=== PATIENT | female | born 1950 | race Caucasian/White ===

== ENCOUNTER 2017-06-16 18:17 | Inpatient (IN) | payer MEDICARE, MEDICAID ==
[~2017-06-16] VITALS: Ht 167.6 cm; Wt 39.0 kg
[2017-06-16 18:16] VITALS: BP 104/64
--- NOTE | 2017-06-16 18:23 | Emergency Room Report ---
History of Present Illness General Chief Complaint: Abnormal Labs Source: Patient, Medical Record Present Illness HPI 66-year-old female history of schizophrenia, anemia, hypothyroidism brought from half-way for high WBC. Per half-way notes patient has remained afebrile and not complaining of any pain or discomfort. Patient currently denying any complaints. Denies any fever chills cough shortness of breath abdominal pain nausea vomiting or diarrhea. Patient states that she has chronic rash secondary to heat which she has currently on her abdomen and legs. Patient states rash is itchy but not painful and usually goes away with Benadryl at night Allergies: Coded Allergies: HALOPERIDOL (Verified Allergy, Intermediate, 06/16/17) Patient History Past Medical History: see triage record Past Surgical History: none Pertinent Family History: none Reviewed Nursing Documentation: PMH: Agreed, PSxH: Agreed Review of Systems All Other Systems: negative except mentioned in HPI Physical Exam Vital Signs Date Time Temp Pulse Resp B/P (MAP) Pulse Ox O2 Delivery O2 Flow Rate FiO2 06/16/17 18:05 98.1 80 16 105/69 97 Room Air Sp02 EP Interpretation: reviewed, normal General Appearance: normal inspection, well appearing, no apparent distress, alert, GCS 15, non-toxic Head: normocephalic, atraumatic Eyes: bilateral eye normal inspection, bilateral eye PERRL, bilateral eye EOMI ENT: normal ENT inspection, normal pharynx, normal voice, moist mucus membranes Neck: normal inspection, full range of motion, supple Respiratory: normal inspection, lungs clear, normal breath sounds, no respiratory distress, no retraction, no wheezing, speaking full sentences, chest symmetrical Cardiovascular #1: normal inspection, regular rate, rhythm, no edema, normal capillary refill Gastrointestinal: normal inspection, non tender, soft, non-distended, no guarding Musculoskeletal: normal inspection, back normal, normal range of motion, non- tender Neurologic: normal inspection, alert, oriented x3, responsive, motor strength/ tone normal, sensory intact, normal gait, speech normal Psychiatric: normal inspection, judgement/insight normal, memory normal Skin: warm/dry, well hydrated, normal turgor, other - mild chronic rash noted to chest/abdomen, nontender Medical Decision Making Diagnostic Impression: Primary Impression: UTI (urinary tract infection) ER Course 66 yo F with p/w high WBC from [place] DDX: UTI, PNA, bacteremia Plan: Obtain labs including cbc, bmp, blood culture, lactate, ua, ucx CXR EKG ER course: Patients BP has remained stable with MAP > 65 Given abx - vancomycin and zosyn Disposition: Patient will admitted to med surg Patient requires continuation of IV antibiotics. D/W Hospitalist Please note that this Emergency Department Report was dictated using [employer] maintenance technology software, occasionally this can lead to erroneous entry secondary to interpretation by the dictation equipment. Laboratory Tests Test 06/16/17 18:30 06/16/17 20:20 White Blood Count 17.1 K/UL (4.8-10.8) H Red Blood Count 3.64 M/UL (4.20-5.40) L Hemoglobin 12.3 G/DL (12.0-16.0) Hematocrit 36.2 % (37.0-47.0) L Mean Corpuscular Volume 100 FL (80-99) H Mean Corpuscular Hemoglobin 33.9 PG (27.0-31.0) H Mean Corpuscular Hemoglobin Concent 34.0 G/DL (32.0-36.0) Red Cell Distribution Width 12.0 % (11.6-14.8) Platelet Count 385 K/UL (150-450) Mean Platelet Volume 6.2 FL (6.5-10.1) L Neutrophils (%) (Auto) 68.0 % (45.0-75.0) Lymphocytes (%) (Auto) 20.9 % (20.0-45.0) Monocytes (%) (Auto) 7.2 % (1.0-10.0) Eosinophils (%) (Auto) 2.5 % (0.0-3.0) Basophils (%) (Auto) 1.5 % (0.0-2.0) Urine Color Pale yellow Urine Appearance Clear Urine pH 7 (4.5-8.0) Urine Specific [place] 1.005 (1.005-1.035) Urine Protein Negative (NEGATIVE) Urine Glucose (UA) Negative (NEGATIVE) Urine Ketones Negative (NEGATIVE) Urine Occult Blood Negative (NEGATIVE) Urine Nitrite Negative (NEGATIVE) Urine Bilirubin Negative (NEGATIVE) Urine Urobilinogen Normal MG/DL (0.0-1.0) Urine Leukocyte Esterase 2+ (NEGATIVE) H Urine RBC 0-2 /HPF (0 - 2) Urine WBC 5-10 /HPF (0 - 2) H Urine Squamous Epithelial Cells None /LPF (NONE/OCC) Urine Bacteria Moderate /HPF (NONE) H Sodium Level 140 mEQ/L (135-145) Potassium Level 4.1 mEQ/L (3.4-4.9) Chloride Level 98 mEQ/L (98-107) Carbon Dioxide Level 30 mEQ/L (20-30) Anion Gap 12 (5-15) Blood Urea Nitrogen 11 mg/dL (7-23) Creatinine 0.7 mg/dL (0.5-0.9) Estimate Glomerular Filtration Rate > 60 mL/min (>60) Glucose Level 98 mg/dL (74-106) Lactic Acid Level 2.60 mmol/L (0.66-2.22) H 0.70 mmol/L (0.66-2.22) Calcium Level 9.3 mg/dL (8.6-10.2) Total Bilirubin < 0.2 mg/dL (0.0-1.2) Aspartate Amino Transferase (AST) 20 U/L (5-40) Alanine Aminotransferase (ALT) 16 U/L (3-33) Alkaline Phosphatase 91 U/L (35-104) Total Creatine Kinase 71 U/L (26-140) Creatine Kinase MB 1.9 ng/mL (< 3.8) Creatine Kinase MB Relative Index 2.6 Troponin I < 0.30 ng/mL (<=0.30) Total Protein 7.2 g/dL (6.6-8.7) Albumin 4.1 g/dL (3.5-5.2) Globulin 3.1 g/dL Albumin/Globulin Ratio 1.3 (1.0-2.7) EKG Diagnostic Results Rate: normal Rhythm: NSR ST Segments: no acute changes ASA given to the pt in ED: No Rhythm Strip Diag. Results EP Interpretation: yes Rate: 81 Rhythm: NSR, no PVC's, no ectopy Chest X-Ray Diagnostic Results Chest X-Ray Diagnostic Results : # of Views/Limited/Complete: 1 View Indication: Other EP Interpretation: Yes Interpretation: no consolidation, no effusion, no pneumothorax, other - hyperinflated lung Impression: Other - hyperinflated lungs Interpreting ER Provider: Electronically signed by Ana Maria Abdul MD Last Vital Signs Date Time Temp Pulse Resp B/P (MAP) Pulse Ox O2 Delivery O2 Flow Rate FiO2 8/25/17 18:16 97.4 80 14 104/64 97 Room Air Disposition: ADMITTED INPATIENT Condition: Serious Ana Maria Abdul M.D. Jun 16, 2017 18:23
[2017-06-16 19:15] VITALS: BP 125/67
[2017-06-16 19:15] LABS: BASOPHILS % (AUTO) 1.5 % (0.0-2.0); EOSINOPHILS % (AUTO) 2.5 % (0.0-3.0); LYMPHOCYTES % (AUTO) 20.9 % (20.0-45.0); MEAN CORPUSCULAR HEMOGLOBIN 33.9 PG (27.0-31.0); MEAN CORPUSCULAR VOLUME 100 FL (80-99); MEAN PLATELET VOLUME 6.2 FL (6.5-10.1); MONOCYTES % (AUTO) 7.2 % (1.0-10.0); PLATELET COUNT 385 K/UL (150-450); RED BLOOD COUNT 3.64 M/UL (4.20-5.40); WHITE BLOOD COUNT 17.1 K/UL (4.8-10.8)
[2017-06-16] MEDS ORDERED: ATIVAN1 MG ORAL (19:39)
[2017-06-16] MEDS ORDERED: SYNTHROID50 MCG ORAL (19:39)
[2017-06-16] MEDS ORDERED: INVEGA SUS156 MG/11 IM (19:39)
[2017-06-16] MEDS ORDERED: CITALOPRAM10 MG/5 M1 ORAL (19:39)
[2017-06-16] MEDS ORDERED: COLACE100 MG ORAL (19:39)
[2017-06-16] MEDS ORDERED: CLONAZEPAM0.5 M1 PO (19:39)
[2017-06-16] MEDS ORDERED: MOM30 ML ORAL (19:39)
[2017-06-16] MEDS ORDERED: TYLENOL650 MG/20. ORAL (19:39)
[2017-06-16 19:43] LABS: TROPONIN I < 0.30 ng/mL (<=0.30)
[2017-06-16 19:58] LABS: REFLEX LACTIC ACID YES OR NO YES
[2017-06-16 20:03] LABS: APPEARANCE,URINE CLEAR; KETONES,URINE NEGATIVE (NEGATIVE); LEUKOCYTE ESTERASE ,URINE 2+ (NEGATIVE); NITRITE,URINE NEGATIVE (NEGATIVE); PH,URINE 7 (4.5-8.0); PROTEIN,URINE NEGATIVE (NEGATIVE); UROBILINOGEN,URINE NORMAL MG/DL (0.0-1.0)
[2017-06-16 20:08] LABS: RBC,URINE 0-2 /HPF (0 - 2)
[2017-06-16 20:09] LABS: BACTERIA,URINE MODERATE /HPF
[2017-06-16 20:15] VITALS: BP 129/70
[2017-06-16] MEDS ORDERED: Vancomycin 1250mg/D5W 250ml 250 ML IVPB SCH (20:15)
[2017-06-16] MEDS ORDERED: cefTRIAXone 1 GM in NS 55 ML IVPB ONE (20:15)
[2017-06-16 20:17] LABS: ALANINE AMINOTRANSFERASE 16 U/L (3-33); ALBUMIN/GLOBULIN RATIO 1.3 (1.0-2.7); ANION GAP 12 (5-15); ASPARTATE AMINO TRANSFERASE 20 U/L (5-40); CALCIUM 9.3 mg/dL (8.6-10.2); CARBON DIOXIDE 30 mEQ/L (20-30); CHLORIDE 98 mEQ/L (98-107); CREATININE 0.7 mg/dL (0.5-0.9); GLOMERULAR FILTRATION RATE > 60 mL/min (>60); HEMOLYSIS 2; POTASSIUM 4.1 mEQ/L (3.4-4.9); SODIUM 140 mEQ/L (135-145); TOTAL PROTEIN 7.2 g/dL (6.6-8.7)
[2017-06-16 20:28] LABS: CKMB 1.9 ng/mL (< 3.8)
[2017-06-16 21:15] VITALS: BP 144/78
[2017-06-16] MEDS ORDERED: DiphenhydrAMINE 50mg/ml Inj IVP ONE (21:15)
[2017-06-16] MEDS ORDERED: Nitroglycerin Subl 0.4mg tab (Bottle Of 25) SL PRN (22:00)
[2017-06-16] MEDS ORDERED: Miralax 17gm pkt ORAL PRN (22:00)
[2017-06-16] MEDS ORDERED: Morphine Sulfate 2mg/ml Inj IVP PRN (22:00)
[2017-06-16] MEDS ORDERED: DuoNeb 0.5-3(2.5)mg/3ml neb HHN PRN (22:00)
[2017-06-17] VITALS: BP 119/60
[2017-06-17] MEDS ORDERED: Vancomycin 1 GM in D5W 275 ML IV SCH (00:30)
[2017-06-17 04:00] VITALS: BP 121/76
[2017-06-17] MEDS: Levothyroxine 25mcg tab ORAL SCH (06:26)
[2017-06-17 07:09] LABS: BASOPHILS % (AUTO) 1.1 % (0.0-2.0); EOSINOPHILS % (AUTO) 2.5 % (0.0-3.0); LYMPHOCYTES % (AUTO) 23.1 % (20.0-45.0); MEAN CORPUSCULAR HEMOGLOBIN 33.9 PG (27.0-31.0); MEAN CORPUSCULAR HGB CONC 33.7 G/DL (32.0-36.0); MEAN CORPUSCULAR VOLUME 101 FL (80-99); MEAN PLATELET VOLUME 6.4 FL (6.5-10.1); MONOCYTES % (AUTO) 6.4 % (1.0-10.0); NEUTROPHILS % (AUTO) 66.9 % (45.0-75.0); PLATELET COUNT 378 K/UL (150-450); RED BLOOD COUNT 3.68 M/UL (4.20-5.40); RED CELL DISTRIBUTION WIDTH 11.5 % (11.6-14.8); WHITE BLOOD COUNT 16.3 K/UL (4.8-10.8)
[2017-06-17 07:20] LABS: ALANINE AMINOTRANSFERASE 15 U/L (3-33); ALBUMIN/GLOBULIN RATIO 1.1 (1.0-2.7); ANION GAP 10 (5-15); ASPARTATE AMINO TRANSFERASE 21 U/L (5-40); CALCIUM 8.7 mg/dL (8.6-10.2); CARBON DIOXIDE 27 mEQ/L (20-30); CHLORIDE 104 mEQ/L (98-107); CREATININE 0.5 mg/dL (0.5-0.9); GLOMERULAR FILTRATION RATE > 60 mL/min (>60); HEMOLYSIS 3; POTASSIUM 4.5 mEQ/L (3.4-4.9); SODIUM 141 mEQ/L (135-145); TOTAL PROTEIN 6.3 g/dL (6.6-8.7)
[2017-06-17 08:00] VITALS: BP 107/74
--- NOTE | 2017-06-17 08:51 | Diagnostic Imaging Report ---
Indication: Chest pain Comparison: None A single view chest radiograph was obtained. Findings: Lungs are clear. Heart size is normal. Aorta is ectatic. Bones are osteopenic. Impression: No acute disease
[2017-06-17] MEDS: Heparin 5000 units/ml inj SUBQ SCH ×2 (09:00→21:00)
[2017-06-17] MEDS: LORazepam 1mg tab ORAL SCH ×2 (09:21→17:25)
[2017-06-17] MEDS: Cefepime HCl 2 GM in D5W 110 ML IV SCH (09:21)
[2017-06-17] MEDS: Citalopram Hydrobromide 10 MG TAB ORAL SCH (11:10)
--- NOTE | 2017-06-17 11:18 | Diagnostic Imaging Report ---
Indication: Dyspnea Comparison: 06/16/17 A single view chest radiograph was obtained. Findings: No definite infiltrate or pulmonary vascular congestion identified. The heart is normal in size. The aorta is mildly enlarged consistent with atherosclerotic vascular disease. The bones are osteopenic. Impression: No acute disease
[2017-06-17 12:00] VITALS: BP 109/68
--- NOTE | 2017-06-17 14:27 | Infectious Diseases Prog Note ---
Assessment/Plan Problems: (1) Sepsis Assessment & Plan: with leukocytosis, continue vancomycin and cefepime, pending blood culture results (2) UTI (urinary tract infection) Assessment & Plan: continue cefepime, pending culture results (3) Tinea corporis Assessment & Plan: will start local Lotrimin, keep well ventilated and dry Subjective Allergies: Coded Allergies: HALOPERIDOL (Verified Allergy, Intermediate, 06/16/17) Objective Vital Signs Last 24 Hour Vital Signs Date Time Temp Pulse Resp B/P (MAP) Pulse Ox O2 Delivery O2 Flow Rate FiO2 06/17/17 12:00 97.2 97 20 109/68 94 Room Air 06/17/17 08:00 96.4 77 18 107/74 94 Room Air 06/17/17 04:00 97.6 81 18 121/76 98 Room Air 06/17/17 00:00 97.3 69 18 119/60 93 Room Air 06/16/17 21:56 97.4 78 18 144/78 98 Room Air 06/16/17 21:15 78 18 144/78 98 Room Air 06/16/17 20:15 67 20 129/70 98 Room Air 06/16/17 19:15 70 21 125/67 98 Room Air 06/16/17 18:16 97.4 80 14 104/64 97 Room Air 06/16/17 18:05 98.1 80 16 105/69 97 Room Air Height (Feet): 5 Height (Inches): 6.00 Weight (Pounds): 86 Laboratory Tests Test 06/16/17 18:30 06/16/17 20:20 06/17/17 05:15 White Blood Count 17.1 K/UL (4.8-10.8) H 16.3 K/UL (4.8-10.8) H Red Blood Count 3.64 M/UL (4.20-5.40) L 3.68 M/UL (4.20-5.40) L Hemoglobin 12.3 G/DL (12.0-16.0) 12.5 G/DL (12.0-16.0) Hematocrit 36.2 % (37.0-47.0) L 37.0 % (37.0-47.0) Mean Corpuscular Volume 100 FL (80-99) H 101 FL (80-99) H Mean Corpuscular Hemoglobin 33.9 PG (27.0-31.0) H 33.9 PG (27.0-31.0) H Mean Corpuscular Hemoglobin Concent 34.0 G/DL (32.0-36.0) 33.7 G/DL (32.0-36.0) Red Cell Distribution Width 12.0 % (11.6-14.8) 11.5 % (11.6-14.8) L Platelet Count 385 K/UL (150-450) 378 K/UL (150-450) Mean Platelet Volume 6.2 FL (6.5-10.1) L 6.4 FL (6.5-10.1) L Neutrophils (%) (Auto) 68.0 % (45.0-75.0) 66.9 % (45.0-75.0) Lymphocytes (%) (Auto) 20.9 % (20.0-45.0) 23.1 % (20.0-45.0) Monocytes (%) (Auto) 7.2 % (1.0-10.0) 6.4 % (1.0-10.0) Eosinophils (%) (Auto) 2.5 % (0.0-3.0) 2.5 % (0.0-3.0) Basophils (%) (Auto) 1.5 % (0.0-2.0) 1.1 % (0.0-2.0) Urine Color Pale yellow Urine Appearance Clear Urine pH 7 (4.5-8.0) Urine Specific [place] 1.005 (1.005-1.035) Urine Protein Negative (NEGATIVE) Urine Glucose (UA) Negative (NEGATIVE) Urine Ketones Negative (NEGATIVE) Urine Occult Blood Negative (NEGATIVE) Urine Nitrite Negative (NEGATIVE) Urine Bilirubin Negative (NEGATIVE) Urine Urobilinogen Normal MG/DL (0.0-1.0) Urine Leukocyte Esterase 2+ (NEGATIVE) H Urine RBC 0-2 /HPF (0 - 2) Urine WBC 5-10 /HPF (0 - 2) H Urine Squamous Epithelial Cells None /LPF (NONE/OCC) Urine Bacteria Moderate /HPF (NONE) H Sodium Level 140 mEQ/L (135-145) 141 mEQ/L (135-145) Potassium Level 4.1 mEQ/L (3.4-4.9) 4.5 mEQ/L (3.4-4.9) Chloride Level 98 mEQ/L (98-107) 104 mEQ/L (98-107) Carbon Dioxide Level 30 mEQ/L (20-30) 27 mEQ/L (20-30) Anion Gap 12 (5-15) 10 (5-15) Blood Urea Nitrogen 11 mg/dL (7-23) 11 mg/dL (7-23) Creatinine 0.7 mg/dL (0.5-0.9) 0.5 mg/dL (0.5-0.9) Estimat Glomerular Filtration Rate > 60 mL/min (>60) > 60 mL/min (>60) Glucose Level 98 mg/dL (74-106) 97 mg/dL (74-106) Lactic Acid Level 2.60 mmol/L (0.66-2.22) H 0.70 mmol/L (0.66-2.22) Calcium Level 9.3 mg/dL (8.6-10.2) 8.7 mg/dL (8.6-10.2) Total Bilirubin < 0.2 mg/dL (0.0-1.2) < 0.2 mg/dL (0.0-1.2) Aspartate Amino Transf (AST/SGOT) 20 U/L (5-40) 21 U/L (5-40) Alanine Aminotransferase (ALT/SGPT) 16 U/L (3-33) 15 U/L (3-33) Alkaline Phosphatase 91 U/L (35-104) 92 U/L (35-104) Total Creatine Kinase 71 U/L (26-140) Creatine Kinase MB 1.9 ng/mL (< 3.8) Creatine Kinase MB Relative Index 2.6 Troponin I < 0.30 ng/mL (<=0.30) Total Protein 7.2 g/dL (6.6-8.7) 6.3 g/dL (6.6-8.7) L Albumin 4.1 g/dL (3.5-5.2) 3.3 g/dL (3.5-5.2) L Globulin 3.1 g/dL 3.0 g/dL Albumin/Globulin Ratio 1.3 (1.0-2.7) 1.1 (1.0-2.7) Current Medications Medications (Trade) Dose Ordered Sig/David Route PRN Reason Start Time Stop Time Status Last Admin Dose Admin Acetaminophen (Tylenol) 650 mg Q4H PRN ORAL fever 06/16/17 22:00 07/16/17 21:59 Albuterol/ Ipratropium (DuoNeb 0.5-3(2.5)mg/3ml) 3 ml Q4H PRN HHN Shortness of Breath 06/16/17 22:00 06/21/17 21:59 Cefepime HCl 2 gm/ Dextrose 110 ml @ 220 mls/hr Q24H IV 06/17/17 08:30 06/24/17 08:29 06/17/17 09:21 Citalopram Hydrobromide (celeXA) 10 mg DAILY ORAL 06/17/17 11:00 07/17/17 10:59 06/17/17 11:10 Clotrimazole (Lotrimin) 1 applic THREE TIMES A DAY TOPIC 06/17/17 18:00 07/17/17 17:59 Diphenhydramine HCl (Benadryl) 25 mg Q8HR PRN ORAL Itching 06/17/17 08:00 07/17/17 07:59 Heparin Sodium (Porcine) (Heparin 5000 units/ml) 5,000 units EVERY 12 HOURS SUBQ 06/17/17 09:00 07/17/17 08:59 Levothyroxine Sodium (Synthroid) 25 mcg DAILY@0630 ORAL 06/17/17 06:30 07/17/17 06:29 06/17/17 06:26 Lorazepam (Ativan) 1 mg BID ORAL 06/17/17 09:00 06/24/17 08:59 06/17/17 09:21 Morphine Sulfate (Morphine Sulfate) 2 mg Q4H PRN IVP Moderate Pain (Pain Scale 4-6) 06/16/17 22:00 06/23/17 21:59 Nicotine (Nicoderm) 1 patch Q24H TDERMAL 06/17/17 10:30 07/17/17 10:29 06/17/17 11:10 Nitroglycerin (Ntg) 0.4 mg Q5MIN x 3 DOSES PRN SL Prn Chest Pain 06/16/17 22:00 07/16/17 21:59 Ondansetron HCl (Zofran) 4 mg Q6H PRN IVP Nausea & Vomiting 06/16/17 22:00 07/16/17 21:59 Polyethylene Glycol (Miralax) 17 gm DAILYPRN PRN ORAL Constipation 06/16/17 22:00 07/16/17 21:59 Temazepam (Restoril) 15 mg HSPRN PRN ORAL Insomnia 06/16/17 22:00 06/23/17 21:59 Vancomycin/Sodium Chloride 250 ml @ 166.667 mls/hr Q24H IVPB 06/17/17 21:00 06/22/17 20:59 Reyna Alex M.D. Jun 17, 2017 14:26
[2017-06-17] MEDS: clonazePAM 0.5mg tab ORAL PRN (15:04)
[2017-06-17] MEDS ORDERED: Tubing IV Secondary IV ONE (15:50)
[2017-06-17] MEDS ORDERED: NS 275ml ONE (15:50)
[2017-06-17 16:00] VITALS: BP 113/77
--- NOTE | 2017-06-17 16:34 | Consultation ---
History of Present Illness General Date patient seen: Jun 17, 2017 Time patient seen: 14:00 Chief Complaint: Abnormal Labs Referring physician: dr Sanchez Reason for Consultation: inpatient management Present Illness HPI 66-year-old female with PMH of history of schizophrenia, anemia, hypothyroidism came form the SNF for evaluation fo leukocytosis. At SNF patient remained afebrile and did not complained of any pain or discomfort. She denies cough, congestion No diarrhea, no abdominal pain No cehst pain, no SOB, no dizziness patient reported chronic rash secondary to heat, on torso and legs described rash as itchy, but no pain Benadryl helps Workup in ED revealed no fever WBC-17.1 lactic acid- 2.6 CXR with evidence of hyperinflated lungs sanya is a current smoker -1 pack/day ECG with NSR no acute ischemic changes patient was admitted for further management Allergies: Coded Allergies: HALOPERIDOL (Verified Allergy, Intermediate, 06/16/17) Medication History Scheduled Citalopram Hydrobromide (Citalopram Hbr), 10 MG ORAL DAILY, (Reported) Docusate Sodium* (Colace*), 100 MG ORAL TWICE A DAY, (Reported) Levothyroxine Sodium (Synthroid), 25 MCG ORAL DAILY, (Reported) Lorazepam* (Ativan*), 1 MG ORAL BID, (Reported) Paliperidone Palmitate (Invega Sustenna), 156 MG IM [id number], (Reported) Scheduled PRN Acetaminophen (Acetaminophen), 650 MG ORAL Q4HR PRN for fever & pain, (Reported) Clonazepam (Clonazepam), 0.5 MG PO Q4HR PRN for For Anxiety, (Reported) Magnesium Hydroxide (Milk of Magnesia), 30 ML ORAL qhs PRN for Constipation, ( Reported) Patient History Healthcare decision maker Resuscitation status Advanced Directive on File Past Medical/Surgical History Past Medical/Surgical History: (1) Anxiety (2) Depression (3) Anemia (4) Hypothyroidism Review of Systems Constitutional: Reports: weakness Eye: Reports: no symptoms ENT: Reports: no symptoms Respiratory: Reports: no symptoms Cardiovascular: Reports: no symptoms Gastrointestinal: Reports: no symptoms Genitourinary: Reports: no symptoms Musculoskeletal: Reports: no symptoms Skin: Reports: no symptoms Psychiatric: Reports: other - depression, anxiety Neurological: Reports: no symptoms Endocrine: Reports: other - hypothyroidism Hematologic/Lymphatic: Reports: anemia Physical Exam General Appearance: no apparent distress, alert, cachetic - female Lines, tubes and drains: peripheral HEENT: normocephalic, atraumatic, anicteric, mucous membranes moist Neck: non-tender, supple Respiratory/Chest: lungs clear - with moderate air exchange Cardiovascular/Chest: normal peripheral pulses, normal rate, regular rhythm Abdomen: normal bowel sounds, non tender, soft Extremities: normal range of motion, non-tender, no calf tenderness, normal capillary refill Skin Exam: normal pigmentation, warm/dry Neurologic: no motor/sensory deficits, alert, responsive Musculoskeletal: normal muscle bulk Last 24 Hour Vital Signs Date Time Temp Pulse Resp B/P (MAP) Pulse Ox O2 Delivery O2 Flow Rate FiO2 06/17/17 12:00 97.2 97 20 109/68 94 Room Air 06/17/17 08:00 96.4 77 18 107/74 94 Room Air 06/17/17 04:00 97.6 81 18 121/76 98 Room Air 06/17/17 00:00 97.3 69 18 119/60 93 Room Air 06/16/17 21:56 97.4 78 18 144/78 98 Room Air 06/16/17 21:15 78 18 144/78 98 Room Air 06/16/17 20:15 67 20 129/70 98 Room Air 06/16/17 19:15 70 21 125/67 98 Room Air 06/16/17 18:16 97.4 80 14 104/64 97 Room Air 06/16/17 18:05 98.1 80 16 105/69 97 Room Air Intake and Output 06/17/17 06/18/17 19:00 07:00 Intake Total 250 ml Balance 250 ml Intake Oral 250 ml # Voids 1 # Bowel Movements 1 Laboratory Tests Test 06/16/17 18:30 06/16/17 20:20 06/17/17 05:15 White Blood Count 17.1 K/UL (4.8-10.8) H 16.3 K/UL (4.8-10.8) H Red Blood Count 3.64 M/UL (4.20-5.40) L 3.68 M/UL (4.20-5.40) L Hemoglobin 12.3 G/DL (12.0-16.0) 12.5 G/DL (12.0-16.0) Hematocrit 36.2 % (37.0-47.0) L 37.0 % (37.0-47.0) Mean Corpuscular Volume 100 FL (80-99) H 101 FL (80-99) H Mean Corpuscular Hemoglobin 33.9 PG (27.0-31.0) H 33.9 PG (27.0-31.0) H Mean Corpuscular Hemoglobin Concent 34.0 G/DL (32.0-36.0) 33.7 G/DL (32.0-36.0) Red Cell Distribution Width 12.0 % (11.6-14.8) 11.5 % (11.6-14.8) L Platelet Count 385 K/UL (150-450) 378 K/UL (150-450) Mean Platelet Volume 6.2 FL (6.5-10.1) L 6.4 FL (6.5-10.1) L Neutrophils (%) (Auto) 68.0 % (45.0-75.0) 66.9 % (45.0-75.0) Lymphocytes (%) (Auto) 20.9 % (20.0-45.0) 23.1 % (20.0-45.0) Monocytes (%) (Auto) 7.2 % (1.0-10.0) 6.4 % (1.0-10.0) Eosinophils (%) (Auto) 2.5 % (0.0-3.0) 2.5 % (0.0-3.0) Basophils (%) (Auto) 1.5 % (0.0-2.0) 1.1 % (0.0-2.0) Urine Color Pale yellow Urine Appearance Clear Urine pH 7 (4.5-8.0) Urine Specific [place] 1.005 (1.005-1.035) Urine Protein Negative (NEGATIVE) Urine Glucose (UA) Negative (NEGATIVE) Urine Ketones Negative (NEGATIVE) Urine Occult Blood Negative (NEGATIVE) Urine Nitrite Negative (NEGATIVE) Urine Bilirubin Negative (NEGATIVE) Urine Urobilinogen Normal MG/DL (0.0-1.0) Urine Leukocyte Esterase 2+ (NEGATIVE) H Urine RBC 0-2 /HPF (0 - 2) Urine WBC 5-10 /HPF (0 - 2) H Urine Squamous Epithelial Cells None /LPF (NONE/OCC) Urine Bacteria Moderate /HPF (NONE) H Sodium Level 140 mEQ/L (135-145) 141 mEQ/L (135-145) Potassium Level 4.1 mEQ/L (3.4-4.9) 4.5 mEQ/L (3.4-4.9) Chloride Level 98 mEQ/L (98-107) 104 mEQ/L (98-107) Carbon Dioxide Level 30 mEQ/L (20-30) 27 mEQ/L (20-30) Anion Gap 12 (5-15) 10 (5-15) Blood Urea Nitrogen 11 mg/dL (7-23) 11 mg/dL (7-23) Creatinine 0.7 mg/dL (0.5-0.9) 0.5 mg/dL (0.5-0.9) Estimat Glomerular Filtration Rate > 60 mL/min (>60) > 60 mL/min (>60) Glucose Level 98 mg/dL (74-106) 97 mg/dL (74-106) Lactic Acid Level 2.60 mmol/L (0.66-2.22) H 0.70 mmol/L (0.66-2.22) Calcium Level 9.3 mg/dL (8.6-10.2) 8.7 mg/dL (8.6-10.2) Total Bilirubin < 0.2 mg/dL (0.0-1.2) < 0.2 mg/dL (0.0-1.2) Aspartate Amino Transf (AST/SGOT) 20 U/L (5-40) 21 U/L (5-40) Alanine Aminotransferase (ALT/SGPT) 16 U/L (3-33) 15 U/L (3-33) Alkaline Phosphatase 91 U/L (35-104) 92 U/L (35-104) Total Creatine Kinase 71 U/L (26-140) Creatine Kinase MB 1.9 ng/mL (< 3.8) Creatine Kinase MB Relative Index 2.6 Troponin I < 0.30 ng/mL (<=0.30) Total Protein 7.2 g/dL (6.6-8.7) 6.3 g/dL (6.6-8.7) L Albumin 4.1 g/dL (3.5-5.2) 3.3 g/dL (3.5-5.2) L Globulin 3.1 g/dL 3.0 g/dL Albumin/Globulin Ratio 1.3 (1.0-2.7) 1.1 (1.0-2.7) Height (Feet): 5 Height (Inches): 6.00 Weight (Pounds): 86 Medications Current Medications Medications (Trade) Dose Ordered Sig/David Route PRN Reason Start Time Stop Time Status Last Admin Dose Admin Acetaminophen (Tylenol) 650 mg Q4H PRN ORAL fever 06/16/17 22:00 07/16/17 21:59 Albuterol/ Ipratropium (DuoNeb 0.5-3(2.5)mg/3ml) 3 ml Q4H PRN HHN Shortness of Breath 06/16/17 22:00 06/21/17 21:59 Cefepime HCl 2 gm/ Dextrose 110 ml @ 220 mls/hr Q24H IV 06/17/17 08:30 06/24/17 08:29 06/17/17 09:21 Citalopram Hydrobromide (celeXA) 10 mg DAILY ORAL 06/17/17 11:00 07/17/17 10:59 06/17/17 11:10 Clonazepam (KlonoPIN) 0.5 mg Q6H PRN ORAL For Anxiety 06/17/17 15:00 06/24/17 14:59 06/17/17 15:04 Clotrimazole (Lotrimin) 1 applic THREE TIMES A DAY TOPIC 06/17/17 18:00 07/17/17 17:59 Diphenhydramine HCl (Benadryl) 25 mg Q8HR PRN ORAL Itching 06/17/17 08:00 07/17/17 07:59 Heparin Sodium (Porcine) (Heparin 5000 units/ml) 5,000 units EVERY 12 HOURS SUBQ 06/17/17 09:00 07/17/17 08:59 Levothyroxine Sodium (Synthroid) 25 mcg DAILY@0630 ORAL 06/17/17 06:30 07/17/17 06:29 06/17/17 06:26 Lorazepam (Ativan) 1 mg BID ORAL 06/17/17 09:00 06/24/17 08:59 06/17/17 09:21 Morphine Sulfate (Morphine Sulfate) 2 mg Q4H PRN IVP Moderate Pain (Pain Scale 4-6) 06/16/17 22:00 06/23/17 21:59 Nicotine (Nicoderm) 1 patch Q24H TDERMAL 06/17/17 10:30 07/17/17 10:29 06/17/17 11:10 Nitroglycerin (Ntg) 0.4 mg Q5MIN x 3 DOSES PRN SL Prn Chest Pain 06/16/17 22:00 07/16/17 21:59 Ondansetron HCl (Zofran) 4 mg Q6H PRN IVP Nausea & Vomiting 06/16/17 22:00 07/16/17 21:59 Polyethylene Glycol (Miralax) 17 gm DAILYPRN PRN ORAL Constipation 06/16/17 22:00 07/16/17 21:59 Temazepam (Restoril) 15 mg HSPRN PRN ORAL Insomnia 06/16/17 22:00 06/23/17 21:59 Vancomycin/Sodium Chloride 250 ml @ 166.667 mls/hr Q24H IVPB 06/17/17 21:00 06/22/17 20:59 Assessment/Plan Assessment/Plan ASSESSMENT possible sepsis UTI Tinea corporis hypothyroidism schizophrenia nicotine dependency with withdrawal cachexia possible protein calorie malnutrition PLAN OF CARE MS floor empiric abx fup with cx ID follows topical Lotrimin as per ID order to skin rash O2 HHN prn CXR with hyperinflated lungs, c/w COPD 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
[2017-06-17 20:00] VITALS: BP 118/79
[2017-06-17 20:03] LABS: APPEARANCE,URINE CLEAR; KETONES,URINE NEGATIVE (NEGATIVE); LEUKOCYTE ESTERASE ,URINE 1+ (NEGATIVE); NITRITE,URINE NEGATIVE (NEGATIVE); PH,URINE 8 (4.5-8.0); PROTEIN,URINE NEGATIVE (NEGATIVE); UROBILINOGEN,URINE NORMAL MG/DL (0.0-1.0)
[2017-06-17 20:12] LABS: RBC,URINE 0-2 /HPF (0 - 2); SQUAMOUS EPITHELIAL CELL,UR OCCASIONAL /LPF (NONE/OCC); WBC,URINE 0-2 /HPF (0 - 2)
[2017-06-17] MEDS: Vancomycin 750mg/NS 250ml IVPB SCH (20:16)
[2017-06-18] VITALS: BP 111/79
--- NOTE | 2017-06-18 02:30 | History and Physical Report ---
DATE OF ADMISSION: 06/16/2017 TIME OF EVALUATION: At 9 a.m. CONSULTANTS: 1. Martin Frey M.D. 2. Dr. Lara. 3. Chele Yang M.D. CHIEF COMPLAINT: Increased confusion and weakness. BRIEF HISTORY: This is a 66-year-old female from [facility], who presents to [facility] with the above-mentioned diagnoses and diagnosed with UTI, sepsis, and altered mental status. Admitted to medical floor for further treatment. Currently, calm, sleeping in bed, refusing to answer questions. PAST MEDICAL HISTORY: Includes psychiatric history PAST SURGICAL HISTORY: Unknown. MEDICATIONS: Include vancomycin, Ativan, heparin, cefepime, Benadryl, Synthroid, , DuoNeb, Tylenol, morphine, Zofran, Restoril, and nitroglycerin. ALLERGIES: Haldol. SOCIAL HISTORY: Unable to obtain secondary to the patient is refusing. REVIEW OF SYSTEMS: Unavailable. PHYSICAL EXAMINATION: VITAL SIGNS: Temperature 96 degrees, pulse 77, respirations 18, and blood pressure 107/74. CARDIOVASCULAR: No murmur. LUNGS: Distant and clear. ABDOMEN: Bowel sounds positive. Nontender and nondistended. EXTREMITIES: No cyanosis, clubbing, or edema. NEUROLOGIC: The patient moves all extremities. She does not want to follow commands. LABORATORY DATA: Labs at this time show white count 16, otherwise CBC is normal. BMP is normal. Albumin is 3.3. Urinalysis shows 2+ leukocyte esterase, otherwise normal. ASSESSMENT: 1. Urinary tract infection. 2. Sepsis. 3. Psychiatric history. 4. Hypothyroid. PLAN: 1. Continue premedications. 2. Antibiotics per Infectious Disease. 3. OT, PT, and dietary evaluation. 4. CBC and BMP in the morning. 5. Dr. Frey, Dr. Lara, and Dr. Yang to consult. 6. We will continue to follow this patient. Jordan Sanchez D.O. DR: DIEGO JOB#: [id number] CC:
[2017-06-18 04:00] VITALS: BP 98/56
[2017-06-18] MEDS: Levothyroxine 25mcg tab ORAL SCH (06:18)
--- NOTE | 2017-06-18 06:53 | General Progress Note ---
Assessment/Plan Problem List: (1) Weak ICD Codes: R53.1 - Weakness SNOMED: 30589714 (2) UTI (urinary tract infection) ICD Codes: N39.0 - Urinary tract infection, site not specified SNOMED: 90822639 (3) Sepsis ICD Codes: A41.9 - Sepsis, unspecified organism SNOMED: 26039435 (4) Hypothyroidism ICD Codes: E03.9 - Hypothyroidism, unspecified SNOMED: 81635363 (5) Anxiety ICD Codes: F41.9 - Anxiety disorder, unspecified SNOMED: 29048129 Status: stable, progressing, tolerating diet Assessment/Plan ot pt diet abx cbc bmp am Subjective Constitutional: Reports: weakness Allergies: Coded Allergies: HALOPERIDOL (Verified Allergy, Intermediate, 06/16/17) All Systems: reviewed and negative except above Subjective calm in bed Objective Last 24 Hour Vital Signs Date Time Temp Pulse Resp B/P (MAP) Pulse Ox O2 Delivery O2 Flow Rate FiO2 06/18/17 04:00 97.7 72 17 98/56 95 Room Air 06/18/17 00:00 97.4 70 18 111/79 95 Room Air 06/17/17 20:00 97.9 67 17 118/79 97 Room Air 06/17/17 19:16 76 18 Room Air 06/17/17 16:00 98.0 80 17 113/77 95 Room Air 06/17/17 12:00 97.2 97 20 109/68 94 Room Air 06/17/17 08:00 96.4 77 18 107/74 94 Room Air Laboratory Tests 06/17/17 17:26: Urine Color Pale yellow, Urine Appearance Clear, Urine pH 8, Urine Specific [place] 1.010, Urine Protein Negative, Urine Glucose (UA) Negative, Urine Ketones Negative, Urine Occult Blood Negative, Urine Nitrite Negative, Urine Bilirubin Negative, Urine Urobilinogen Normal, Urine Leukocyte Esterase 1+H, Urine RBC 0-2, Urine WBC 0-2, Urine Squamous Epithelial Cells Occasional, Urine Bacteria None Height (Feet): 5 Height (Inches): 6.00 Weight (Pounds): 86 General Appearance: lethargic EENT: normal ENT inspection Neck: normal alignment Cardiovascular: normal peripheral pulses, normal rate, regularly irregular Respiratory/Chest: chest wall non-tender, lungs clear, normal breath sounds Abdomen: normal bowel sounds, non tender, soft Extremities: normal inspection Edema: no edema noted Arm (L), no edema noted Arm (R), no edema noted Leg (L), no edema noted Leg (R), no edema noted Pedal (L), no edema noted Pedal (R), no edema noted Generalized Neurologic: motor weakness Skin: normal pigmentation, warm/dry SERGEY NOLAN Jun 18, 2017 06:53
[2017-06-18 07:43] LABS: BASOPHILS % (AUTO) 1.5 % (0.0-2.0); EOSINOPHILS % (AUTO) 4.1 % (0.0-3.0); LYMPHOCYTES % (AUTO) 28.2 % (20.0-45.0); MEAN CORPUSCULAR HEMOGLOBIN 33.4 PG (27.0-31.0); MEAN CORPUSCULAR HGB CONC 33.6 G/DL (32.0-36.0); MEAN CORPUSCULAR VOLUME 99 FL (80-99); MEAN PLATELET VOLUME 6.4 FL (6.5-10.1); MONOCYTES % (AUTO) 8.3 % (1.0-10.0); PLATELET COUNT 383 K/UL (150-450); RED BLOOD COUNT 3.73 M/UL (4.20-5.40); RED CELL DISTRIBUTION WIDTH 11.4 % (11.6-14.8); WHITE BLOOD COUNT 9.3 K/UL (4.8-10.8)
--- NOTE | 2017-06-18 07:45 | Consultation ---
DATE OF CONSULTATION: INFECTIOUS DISEASES CONSULTATION REQUESTING PHYSICIAN: Jordan Sanchez D.O. REASON FOR CONSULTATION: Sepsis and urinary tract infection, recommendation for antibiotics treatment. HISTORY OF PRESENT ILLNESS: The patient is a 66-year-old female with history of schizophrenia, anemia, and hypothyroidism, was sent from shelter to the emergency room at [facility] for leukocytosis. She had no fever and no complaint whatsoever except skin rash mainly in the groin area and in the back, which has been itchy. The patient was found to have significant leukocytosis, started on antibiotics and I was consulted by the primary provider for antibiotics treatment and further management. PAST MEDICAL HISTORY: Significant for schizophrenia, anemia, and hypothyroidism. PAST SURGICAL HISTORY: Negative. ALLERGIES: She is allergic to haloperidol. MEDICATIONS: She is on vancomycin and cefepime. FAMILY HISTORY: Negative. SOCIAL HISTORY: Lives at the shelter. No recent drugs, tobacco, or alcohol. REVIEW OF SYSTEMS: A 12-point of system reviewed, they were all negative. PHYSICAL EXAMINATION: VITAL SIGNS: Temperature 97.2 degrees, pulse 97, respirations 20, and blood pressure 109/68. Saturation is 94% on room air. GENERAL: A middle-aged female, up in bed, awake and alert, not in distress. HEENT: Normocephalic and atraumatic. NECK: Supple. CARDIOVASCULAR: Regular rate and rhythm. LUNGS: Clear. ABDOMEN: Soft, nontender, and nondistended. EXTREMITIES: No edema or cyanosis. SKIN: She had tinea corporis in both inguinal area, extends to both anterior thigh, itchy with dry skin, and she had also spot in the back. LABORATORY DATA: White count 17,100 and platelets 385,000. BUN 11 and creatinine 0.5. Urinalysis showed +2 leukocyte esterase, wbc's 5 to 10, and moderate amount of bacteria. IMAGING: Chest x-ray on admission showed no acute disease. ASSESSMENT AND RECOMMENDATION: 1. Sepsis with leukocytosis. Continue vancomycin and cefepime pending cultures. 2. Urinary tract infection, on cefepime. Continue pending urine culture. 3. Tinea corporis. We will start local Lotrimin and keep well ventilated and dry. Reyna Alex M.D. DR: PALOMO JOB#: [id number] CC:
[2017-06-18 07:58] VITALS: BP 108/70
[2017-06-18 08:08] LABS: ANION GAP 9 (5-15); CALCIUM 8.9 mg/dL (8.6-10.2); CARBON DIOXIDE 29 mEQ/L (20-30); CHLORIDE 101 mEQ/L (98-107); CREATININE 0.6 mg/dL (0.5-0.9); GLOMERULAR FILTRATION RATE > 60 mL/min (>60); HEMOLYSIS 1; POTASSIUM 4.3 mEQ/L (3.4-4.9); SODIUM 139 mEQ/L (135-145)
[2017-06-18] MEDS: Heparin 5000 units/ml inj SUBQ SCH ×2 (08:09→21:00)
[2017-06-18] MEDS: LORazepam 1mg tab ORAL SCH ×2 (08:14→17:32)
[2017-06-18] MEDS: Cefepime HCl 2 GM in D5W 110 ML IV SCH (08:14)
[2017-06-18] MEDS: Citalopram Hydrobromide 10 MG TAB ORAL SCH (08:14)
[2017-06-18 11:48] VITALS: BP 107/72
--- NOTE | 2017-06-18 14:20 | Pulmonology Progress Note ---
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, not ready to quit yet elevated TSH, increase current dose of levothyroxine dietary eval check prealbumin DVT prophylaxis case discussed and evaluated by supervising physician Subjective Allergies: Coded Allergies: HALOPERIDOL (Verified Allergy, Intermediate, 06/16/17) Subjective leukocytosis resolved afebrile denies chest pain, abdominal pain pulse oximetry stable on RA Objective Last 24 Hour Vital Signs Date Time Temp Pulse Resp B/P (MAP) Pulse Ox O2 Delivery O2 Flow Rate FiO2 06/18/17 11:48 97.5 70 19 107/72 97 Room Air 06/18/17 07:58 97.0 79 19 108/70 96 Room Air 06/18/17 07:58 72 18 Room Air 06/18/17 04:00 97.7 72 17 98/56 95 Room Air 06/18/17 00:00 97.4 70 18 111/79 95 Room Air 06/17/17 20:00 97.9 67 17 118/79 97 Room Air 06/17/17 19:16 76 18 Room Air 06/17/17 16:00 98.0 80 17 113/77 95 Room Air Objective General Appearance: no apparent distress, alert, cachetic female Lines, tubes and drains: peripheral HEENT: normocephalic, atraumatic, anicteric, mucous membranes moist Neck: non-tender, supple Respiratory/Chest: lungs clear - with moderate air exchange Cardiovascular/Chest: normal peripheral pulses, normal rate, regular rhythm Abdomen: normal bowel sounds, non tender, soft Extremities: normal range of motion, non-tender, no calf tenderness, normal capillary refill Skin Exam: normal pigmentation, warm/dry Neurologic: no motor/sensory deficits, alert, responsive Musculoskeletal: normal muscle bulk Microbiology Date/Time Source Procedure Growth Status 06/16/17 19:00 Blood Blood Culture - Preliminary NO GROWTH AFTER 24 HOURS Resulted 06/16/17 18:30 Blood Blood Culture - Preliminary NO GROWTH AFTER 24 HOURS Resulted 06/16/17 18:30 Urine,Clean Catch Urine Culture - Preliminary Gram Negative Bacillus 1 Resulted Laboratory Tests 06/17/17 17:26: Urine Color Pale yellow, Urine Appearance Clear, Urine pH 8, Urine Specific [place] 1.010, Urine Protein Negative, Urine Glucose (UA) Negative, Urine Ketones Negative, Urine Occult Blood Negative, Urine Nitrite Negative, Urine Bilirubin Negative, Urine Urobilinogen Normal, Urine Leukocyte Esterase 1+H, Urine RBC 0-2, Urine WBC 0-2, Urine Squamous Epithelial Cells Occasional, Urine Bacteria None 06/18/17 05:50: White Blood Count 9.3, Red Blood Count 3.73L, Hemoglobin 12.5, Hematocrit 37.0, Mean Corpuscular Volume 99, Mean Corpuscular Hemoglobin 33.4H, Mean Corpuscular Hemoglobin Concent 33.6, Red Cell Distribution Width 11.4L, Platelet Count 383, Mean Platelet Volume 6.4L, Neutrophils (%) (Auto) 58.0, Lymphocytes (%) (Auto) 28.2, Monocytes (%) (Auto) 8.3, Eosinophils (%) (Auto) 4.1H, Basophils (%) (Auto ) 1.5, Sodium Level 139, Potassium Level 4.3, Chloride Level 101, Carbon Dioxide Level 29, Anion Gap 9, Blood Urea Nitrogen 9, Creatinine 0.6, Estimat Glomerular Filtration Rate > 60, Glucose Level 90, Calcium Level 8.9, Prealbumin [Pending], Thyroid Stimulating Hormone (TSH) 11.660H Current Medications Medications (Trade) Dose Ordered Sig/David Route PRN Reason Start Time Stop Time Status Last Admin Dose Admin Acetaminophen (Tylenol) 650 mg Q4H PRN ORAL fever 06/16/17 22:00 07/16/17 21:59 Albuterol/ Ipratropium (DuoNeb 0.5-3(2.5)mg/3ml) 3 ml Q4H PRN HHN Shortness of Breath 06/16/17 22:00 06/21/17 21:59 Cefepime HCl 2 gm/ Dextrose 110 ml @ 220 mls/hr Q24H IV 06/17/17 08:30 06/24/17 08:29 06/18/17 08:14 Citalopram Hydrobromide (celeXA) 10 mg DAILY ORAL 06/17/17 11:00 07/17/17 10:59 06/18/17 08:14 Clonazepam (KlonoPIN) 0.5 mg Q6H PRN ORAL For Anxiety 06/17/17 15:00 06/24/17 14:59 06/17/17 15:04 Clotrimazole (Lotrimin) 1 applic THREE TIMES A DAY TOPIC 06/17/17 18:00 07/17/17 17:59 Diphenhydramine HCl (Benadryl) 25 mg Q8HR PRN ORAL Itching 06/17/17 08:00 07/17/17 07:59 06/18/17 07:20 Heparin Sodium (Porcine) (Heparin 5000 units/ml) 5,000 units EVERY 12 HOURS SUBQ 06/17/17 09:00 07/17/17 08:59 Levothyroxine Sodium (Synthroid) 25 mcg DAILY@0630 ORAL 06/17/17 06:30 07/17/17 06:29 06/18/17 06:18 Lorazepam (Ativan) 1 mg BID ORAL 06/17/17 09:00 06/24/17 08:59 06/18/17 08:14 Morphine Sulfate (Morphine Sulfate) 2 mg Q4H PRN IVP Moderate Pain (Pain Scale 4-6) 06/16/17 22:00 06/23/17 21:59 Nicotine (Nicoderm) 1 patch Q24H TDERMAL 06/17/17 10:30 07/17/17 10:29 06/18/17 10:32 Nitroglycerin (Ntg) 0.4 mg Q5MIN x 3 DOSES PRN SL Prn Chest Pain 06/16/17 22:00 07/16/17 21:59 Ondansetron HCl (Zofran) 4 mg Q6H PRN IVP Nausea & Vomiting 06/16/17 22:00 07/16/17 21:59 Polyethylene Glycol (Miralax) 17 gm DAILYPRN PRN ORAL Constipation 06/16/17 22:00 07/16/17 21:59 Temazepam (Restoril) 15 mg HSPRN PRN ORAL Insomnia 06/16/17 22:00 06/23/17 21:59 06/17/17 21:35 Vancomycin/Sodium Chloride 250 ml @ 166.667 mls/hr Q24H IVPB 06/17/17 21:00 06/22/17 20:59 06/17/17 20:16 [facility] [place] Kim[place] NP Jun 18, 2017 14:20
[2017-06-18 15:55] VITALS: BP 115/73
[2017-06-18] MEDS ORDERED: Tubing IV Secondary IV ONE (18:16)
[2017-06-18] MEDS ORDERED: D5 1/2NS 1000ml IV ONE (18:16)
[2017-06-18 20:00] VITALS: BP 120/72
[2017-06-18] MEDS: Vancomycin 750mg/NS 250ml IVPB SCH (21:48)
[2017-06-19] VITALS: BP 126/80
[2017-06-19 04:00] VITALS: BP 121/76
[2017-06-19 07:31] LABS: BASOPHILS % (AUTO) 1.5 % (0.0-2.0); EOSINOPHILS % (AUTO) 4.9 % (0.0-3.0); LYMPHOCYTES % (AUTO) 27.5 % (20.0-45.0); MEAN CORPUSCULAR HEMOGLOBIN 34.9 PG (27.0-31.0); MEAN CORPUSCULAR HGB CONC 34.7 G/DL (32.0-36.0); MEAN CORPUSCULAR VOLUME 101 FL (80-99); MEAN PLATELET VOLUME 6.3 FL (6.5-10.1); MONOCYTES % (AUTO) 8.9 % (1.0-10.0); NEUTROPHILS % (AUTO) 57.2 % (45.0-75.0); PLATELET COUNT 343 K/UL (150-450); RED BLOOD COUNT 3.57 M/UL (4.20-5.40); RED CELL DISTRIBUTION WIDTH 11.6 % (11.6-14.8); WHITE BLOOD COUNT 9.3 K/UL (4.8-10.8)
[2017-06-19 07:38] LABS: ANION GAP 10 (5-15); CALCIUM 8.5 mg/dL (8.6-10.2); CARBON DIOXIDE 26 mEQ/L (20-30); CHLORIDE 102 mEQ/L (98-107); CREATININE 0.5 mg/dL (0.5-0.9); GLOMERULAR FILTRATION RATE > 60 mL/min (>60); HEMOLYSIS 4; POTASSIUM 4.1 mEQ/L (3.4-4.9); SODIUM 138 mEQ/L (135-145)
[2017-06-19 08:00] VITALS: BP 116/66
[2017-06-19] MEDS: Citalopram Hydrobromide 10 MG TAB ORAL SCH (08:49)
[2017-06-19] MEDS: Cefepime HCl 2 GM in D5W 110 ML IV SCH (08:49)
[2017-06-19] MEDS: LORazepam 1mg tab ORAL SCH ×2 (08:49→18:00)
[2017-06-19] MEDS: Heparin 5000 units/ml inj SUBQ SCH (08:50)
[2017-06-19] MEDS ORDERED: Vancomycin 500mg/D5W 110ml IVPB SCH ×2 (09:00)
[2017-06-19 12:00] VITALS: BP 120/69
[2017-06-19] MEDS: clonazePAM 0.5mg tab ORAL PRN (13:07)
--- NOTE | 2017-06-19 14:15 | General Progress Note ---
Assessment/Plan Problem List: (1) Weak ICD Codes: R53.1 - Weakness SNOMED: 94511604 (2) UTI (urinary tract infection) ICD Codes: N39.0 - Urinary tract infection, site not specified SNOMED: 43064106 (3) Sepsis ICD Codes: A41.9 - Sepsis, unspecified organism SNOMED: 85378750 (4) Hypothyroidism ICD Codes: E03.9 - Hypothyroidism, unspecified SNOMED: 41540871 (5) Anxiety ICD Codes: F41.9 - Anxiety disorder, unspecified SNOMED: 05809306 Status: stable, progressing, tolerating diet Assessment/Plan ot pt diet abx dc to snf Subjective Constitutional: Reports: weakness Allergies: Coded Allergies: HALOPERIDOL (Verified Allergy, Intermediate, 06/16/17) All Systems: reviewed and negative except above Subjective calm in bed Objective Last 24 Hour Vital Signs Date Time Temp Pulse Resp B/P (MAP) Pulse Ox O2 Delivery O2 Flow Rate FiO2 06/19/17 12:00 97.0 82 18 120/69 98 Room Air 06/19/17 09:40 73 16 Room Air 06/19/17 08:00 96.0 79 18 116/66 95 Room Air 06/19/17 04:00 97.9 20 121/76 Room Air 06/19/17 00:00 97.6 85 20 126/80 97 Room Air 06/18/17 20:14 70 18 Room Air 06/18/17 20:00 98.1 93 20 120/72 95 Room Air 06/18/17 15:55 98.0 73 19 115/73 96 Room Air Laboratory Tests 06/18/17 20:00: Vancomycin Level Trough 4.8L 06/19/17 05:30: White Blood Count 9.3, Red Blood Count 3.57L, Hemoglobin 12.5, Hematocrit 35.9L , Mean Corpuscular Volume 101H, Mean Corpuscular Hemoglobin 34.9H, Mean Corpuscular Hemoglobin Concent 34.7, Red Cell Distribution Width 11.6, Platelet Count 343, Mean Platelet Volume 6.3L, Neutrophils (%) (Auto) 57.2, Lymphocytes ( %) (Auto) 27.5, Monocytes (%) (Auto) 8.9, Eosinophils (%) (Auto) 4.9H, Basophils (%) (Auto) 1.5 06/19/17 05:35: Sodium Level 138, Potassium Level 4.1, Chloride Level 102, Carbon Dioxide Level 26, Anion Gap 10, Blood Urea Nitrogen 15, Creatinine 0.5, Estimat Glomerular Filtration Rate > 60, Glucose Level 94, Calcium Level 8.5L Height (Feet): 5 Height (Inches): 6.00 Weight (Pounds): 86 General Appearance: lethargic EENT: normal ENT inspection Neck: normal alignment Cardiovascular: normal peripheral pulses, normal rate, regular rhythm Respiratory/Chest: chest wall non-tender, lungs clear, normal breath sounds Abdomen: normal bowel sounds, non tender, soft Extremities: normal inspection Edema: no edema noted Arm (L), no edema noted Arm (R), no edema noted Leg (L), no edema noted Leg (R), no edema noted Pedal (L), no edema noted Pedal (R), no edema noted Generalized Neurologic: motor weakness Skin: normal pigmentation, warm/dry SERGEY NOLAN Jun 19, 2017 14:15
[2017-06-19] MEDS ORDERED: ACETAMINOPHEN325 M1 ORAL (14:57)
[2017-06-19] MEDS ORDERED: CELEXA10 MG ORAL (14:59)
[2017-06-19] MEDS ORDERED: BENADRYL25 M3 PO (15:01)
[2017-06-19] MEDS ORDERED: HEPARIN SO5000 UNIT2 SUBQ (15:03)
[2017-06-19] MEDS ORDERED: DUONEB 0.5-3(2.53 ML HHN (15:04)
[2017-06-19] MEDS ORDERED: SYNTHROID50 MCG ORAL (15:05)
[2017-06-19] MEDS ORDERED: NICOTINE PATCH1 EAC1 TD (15:07)
[2017-06-19] MEDS ORDERED: NITROSTAT0.4 M1 SL (15:08)
[2017-06-19] MEDS ORDERED: ZOFRAN4 M1 ORAL (15:08)
[2017-06-19] MEDS ORDERED: MIRALAX17 G2 ORAL (15:09)
[2017-06-19] MEDS ORDERED: RESTORIL15 MG ORAL (15:10)
[2017-06-19] MEDS ORDERED: KEFLEX500 MG ORAL (15:11)
[2017-06-19] MEDS ORDERED: CLOTRIMAZOLE15 GM TOPIC (15:12)
[2017-06-19 16:00] VITALS: BP 124/73
--- NOTE | 2017-06-19 16:24 | Infectious Diseases Prog Note ---
Assessment/Plan Problems: (1) Sepsis Assessment & Plan: less likely with negative blood culture , will stop vancomycin and cefepime (2) UTI (urinary tract infection) Assessment & Plan: on cefepime, will switch to oral keflex for 7 days (3) Tinea corporis Assessment & Plan: continue local Lotrimin for 7 days , keep well ventilated and dry Subjective ROS Limited/Unobtainable: Yes Allergies: Coded Allergies: HALOPERIDOL (Verified Allergy, Intermediate, 06/16/17) Objective Vital Signs Last 24 Hour Vital Signs Date Time Temp Pulse Resp B/P (MAP) Pulse Ox O2 Delivery O2 Flow Rate FiO2 06/19/17 12:00 97.0 82 18 120/69 98 Room Air 06/19/17 09:40 73 16 Room Air 06/19/17 08:00 96.0 79 18 116/66 95 Room Air 06/19/17 04:00 97.9 20 121/76 Room Air 06/19/17 00:00 97.6 85 20 126/80 97 Room Air 06/18/17 20:14 70 18 Room Air 06/18/17 20:00 98.1 93 20 120/72 95 Room Air Height (Feet): 5 Height (Inches): 6.00 Weight (Pounds): 86 General Appearance: WD/WN, no acute distress HEENT: normocephalic, atraumatic Respiratory/Chest: chest wall non-tender, lungs clear, normal breath sounds Cardiovascular: normal peripheral pulses, normal rate, regular rhythm Abdomen: normal bowel sounds, soft, non tender, no organomegaly, non distended Extremities: no cyanosis, no clubbing Skin: no rash, no lesions Microbiology Date/Time Source Procedure Growth Status 06/16/17 19:00 Blood Blood Culture - Preliminary NO GROWTH AFTER 48 HOURS Resulted 06/16/17 18:30 Blood Blood Culture - Preliminary NO GROWTH AFTER 48 HOURS Resulted 06/16/17 21:10 Nasal Nares MRSA Culture - Final NO METHICILLIN RESISTANT STAPH AUREUS... Complete 06/16/17 18:30 Urine,Clean Catch Urine Culture - Final Escherichia Coli Complete 06/16/17 21:10 Rectum VRE Culture - Final NO VANCOMYCIN RESISTANT ENTEROCOCCUS ... Complete Laboratory Tests Test 06/18/17 20:00 06/19/17 05:30 06/19/17 05:35 Vancomycin Level Trough 4.8 ug/mL (5.0-12.0) L White Blood Count 9.3 K/UL (4.8-10.8) Red Blood Count 3.57 M/UL (4.20-5.40) L Hemoglobin 12.5 G/DL (12.0-16.0) Hematocrit 35.9 % (37.0-47.0) L Mean Corpuscular Volume 101 FL (80-99) H Mean Corpuscular Hemoglobin 34.9 PG (27.0-31.0) H Mean Corpuscular Hemoglobin Concent 34.7 G/DL (32.0-36.0) Red Cell Distribution Width 11.6 % (11.6-14.8) Platelet Count 343 K/UL (150-450) Mean Platelet Volume 6.3 FL (6.5-10.1) L Neutrophils (%) (Auto) 57.2 % (45.0-75.0) Lymphocytes (%) (Auto) 27.5 % (20.0-45.0) Monocytes (%) (Auto) 8.9 % (1.0-10.0) Eosinophils (%) (Auto) 4.9 % (0.0-3.0) H Basophils (%) (Auto) 1.5 % (0.0-2.0) Sodium Level 138 mEQ/L (135-145) Potassium Level 4.1 mEQ/L (3.4-4.9) Chloride Level 102 mEQ/L (98-107) Carbon Dioxide Level 26 mEQ/L (20-30) Anion Gap 10 (5-15) Blood Urea Nitrogen 15 mg/dL (7-23) Creatinine 0.5 mg/dL (0.5-0.9) Estimat Glomerular Filtration Rate > 60 mL/min (>60) Glucose Level 94 mg/dL (74-106) Calcium Level 8.5 mg/dL (8.6-10.2) L Current Medications Medications (Trade) Dose Ordered Sig/David Route PRN Reason Start Time Stop Time Status Last Admin Dose Admin Acetaminophen (Tylenol) 650 mg Q4H PRN ORAL fever 06/16/17 22:00 07/16/17 21:59 Albuterol/ Ipratropium (DuoNeb 0.5-3(2.5)mg/3ml) 3 ml Q4H PRN HHN Shortness of Breath 06/16/17 22:00 06/21/17 21:59 Cefepime HCl 2 gm/ Dextrose 110 ml @ 220 mls/hr Q24H IV 06/17/17 08:30 06/24/17 08:29 06/19/17 08:49 Citalopram Hydrobromide (celeXA) 10 mg DAILY ORAL 06/17/17 11:00 07/17/17 10:59 06/19/17 08:49 Clonazepam (KlonoPIN) 0.5 mg Q6H PRN ORAL For Anxiety 06/17/17 15:00 06/24/17 14:59 06/19/17 13:07 Clotrimazole (Lotrimin) 1 applic THREE TIMES A DAY TOPIC 06/17/17 18:00 07/17/17 17:59 Diphenhydramine HCl (Benadryl) 25 mg Q8HR PRN ORAL Itching 06/17/17 08:00 07/17/17 07:59 06/19/17 10:32 Heparin Sodium (Porcine) (Heparin 5000 units/ml) 5,000 units EVERY 12 HOURS SUBQ 06/17/17 09:00 07/17/17 08:59 Levothyroxine Sodium (Synthroid) 50 mcg DAILY@0630 ORAL 06/19/17 06:30 07/19/17 06:29 06/19/17 06:27 Lorazepam (Ativan) 1 mg BID ORAL 06/17/17 09:00 06/24/17 08:59 06/19/17 08:49 Morphine Sulfate (Morphine Sulfate) 2 mg Q4H PRN IVP Moderate Pain (Pain Scale 4-6) 06/16/17 22:00 06/23/17 21:59 Nicotine (Nicoderm) 1 patch Q24H TDERMAL 06/17/17 10:30 07/17/17 10:29 06/19/17 10:32 Nitroglycerin (Ntg) 0.4 mg Q5MIN x 3 DOSES PRN SL Prn Chest Pain 06/16/17 22:00 07/16/17 21:59 Ondansetron HCl (Zofran) 4 mg Q6H PRN IVP Nausea & Vomiting 06/16/17 22:00 07/16/17 21:59 Polyethylene Glycol (Miralax) 17 gm DAILYPRN PRN ORAL Constipation 06/16/17 22:00 07/16/17 21:59 Temazepam (Restoril) 15 mg HSPRN PRN ORAL Insomnia 06/16/17 22:00 06/23/17 21:59 06/19/17 01:05 Vancomycin HCl (Vanco rx to dose) 1 ea DAILY PRN MISC PER RX PROTOCOL 06/19/17 15:15 07/19/17 15:14 Vancomycin HCl 500 mg/Dextrose 110 ml @ 110 mls/hr Q12H IVPB 06/19/17 09:00 06/24/17 08:59 06/19/17 10:24 Reyna Alex M.D. Jun 19, 2017 16:24
--- NOTE | 2017-06-19 16:45 | Progress Note ---
DATE: 06/19/2017 SUBJECTIVE: The patient has a paranoid schizophrenia. She was in the hospital for sepsis. PLAN: My plan is to treat her with Celexa 10 mg per day, Klonopin 0.5 mg q.6 h. and she will continue to be followed and monitor on the unit. She will continue to be followed by Psychiatry to prevent any decline in her cognition. Chart reviewed and discussed with staff. Seen and assessed at bedside. Chele Yang M.D. DR: ROSA JOB#: [id number] CC:
--- NOTE | 2017-06-19 19:56 | Pulmonology Progress Note ---
Assessment/Plan Problems: (1) Sepsis (2) Anemia (3) Depression (4) Hypothyroidism Assessment/Plan improving check electrolytes continue current management dvt prophylaxis Subjective ROS Limited/Unobtainable: No Constitutional: Reports: no symptoms HEENT: Repors: no symptoms Allergies: Coded Allergies: HALOPERIDOL (Verified Allergy, Intermediate, 06/16/17) Objective Last 24 Hour Vital Signs Date Time Temp Pulse Resp B/P (MAP) Pulse Ox O2 Delivery O2 Flow Rate FiO2 06/19/17 16:00 98.0 20 124/73 97 Room Air 06/19/17 12:00 97.0 82 18 120/69 98 Room Air 06/19/17 09:40 73 16 Room Air 06/19/17 08:00 96.0 79 18 116/66 95 Room Air 06/19/17 04:00 97.9 20 121/76 Room Air 06/19/17 00:00 97.6 85 20 126/80 97 Room Air 06/18/17 20:14 70 18 Room Air 06/18/17 20:00 98.1 93 20 120/72 95 Room Air Intake and Output 06/19/17 06/20/17 19:00 07:00 Intake Total 820 ml Balance 820 ml Intake Oral 820 ml # Voids 4 General Appearance: WD/WN HEENT: normocephalic, atraumatic Respiratory/Chest: chest wall non-tender, lungs clear Breasts: no masses Cardiovascular: normal peripheral pulses, normal rate Abdomen: normal bowel sounds, soft, non tender Genitourinary: normal external genitalia Extremities: no cyanosis Microbiology Date/Time Source Procedure Growth Status 06/16/17 21:10 Nasal Nares MRSA Culture - Final NO METHICILLIN RESISTANT STAPH AUREUS... Complete 06/16/17 21:10 Rectum VRE Culture - Final NO VANCOMYCIN RESISTANT ENTEROCOCCUS ... Complete Laboratory Tests 06/18/17 20:00: Vancomycin Level Trough 4.8L 06/19/17 05:30: White Blood Count 9.3, Red Blood Count 3.57L, Hemoglobin 12.5, Hematocrit 35.9L , Mean Corpuscular Volume 101H, Mean Corpuscular Hemoglobin 34.9H, Mean Corpuscular Hemoglobin Concent 34.7, Red Cell Distribution Width 11.6, Platelet Count 343, Mean Platelet Volume 6.3L, Neutrophils (%) (Auto) 57.2, Lymphocytes ( %) (Auto) 27.5, Monocytes (%) (Auto) 8.9, Eosinophils (%) (Auto) 4.9H, Basophils (%) (Auto) 1.5 06/19/17 05:35: Sodium Level 138, Potassium Level 4.1, Chloride Level 102, Carbon Dioxide Level 26, Anion Gap 10, Blood Urea Nitrogen 15, Creatinine 0.5, Estimat Glomerular Filtration Rate > 60, Glucose Level 94, Calcium Level 8.5L LULA TIM Jun 19, 2017 19:56
--- NOTE | 2017-06-20 06:15 | Consultation ---
DATE OF CONSULTATION: 06/18/2017 PSYCHOTHERAPY CONSULTATION PROGRESS NOTE CONSULTING PHYSICIAN: Crow Sweeney M.D. TREATING ATTENDING PHYSICIAN: Jordan Sanchez D.O. HISTORY OF PRESENT ILLNESS: This is a 66-year-old female patient from [facility], who is admitted to the hospital for UTI, sepsis, and altered mental status. The patient is very confused, disorganized, and agitated. The patient has a history of paranoid schizophrenia. PAST MEDICAL HISTORY: Significant for history of UTI and sepsis. ALLERGIES: The patient is allergic to Haldol. SUBSTANCE ABUSE HISTORY: There is no indication of alcohol use, illicit substance use, and smoking cigarette. PAST PSYCHIATRIC HISTORY: The patient has a history of paranoid schizophrenia. SOCIAL HISTORY: The patient is a 66-year-old female patient from [facility]. Financially sustained through Medicare. MENTAL STATUS EXAMINATION: The patient is alert and oriented to person and place. Mood is depressed. Affect is blunted. Thought process is disorganized. The patient has poor attention and concentration. Poor insight, judgment, and impulse control. ASSESSMENT AND PLAN: This clinician assessed this patient, provided the patient with supportive psychotherapy and reality orientation. Encouraging the patient to participate in treatment and milieu. DIAGNOSES: Casey I Paranoid schizophrenia. Casey II Deferred. Casey III Per History and Physical. Continue with medication management and behavioral management. This clinician has reviewed the patient's chart and discussed the treatment with the nursing staff. Crow Sweeney PsyD. DR: ANALY JOB#: [id number] CC: MILLER
--- NOTE | 2017-06-20 08:01 | Consultation ---
DATE OF CONSULTATION: 06/18/2017 INITIAL PSYCHIATRIC CONSULTATION CONSULTING PHYSICIAN: Chele Yang M.D. REQUESTING PHYSICIAN: Jordan Sanchez D.O. History Of Present Illness: The patient is a 66-year-old female patient with sepsis. This patient came into the hospital confused, disorganized, altered mental status, but this patient has a diagnosis of paranoid schizophrenia, on Invega Sustenna 156 mg IM every month. She is also on Celexa 10 mg daily, and Klonopin 0.5 mg q.6 h., but she has a diagnosis of paranoid schizophrenia, which is the reason for psychiatric consultation. The reason she was admitted to [facility] was because of increased confusion and weakness. She came in from a [place] [facility]. She had urinary tract infection and sepsis, which caused worsening of her cognition and more altered mental status and mood lability. That is why psychiatric consultation requested for this patient to prevent any further decline in her cognition and also trying to improve her cognition closer to her baseline. PAST MEDICAL HISTORY: UTI and sepsis. ALLERGIES: Haldol. SOCIAL HISTORY: Lives in [facility]. Financially supported by [employer] and Medicare. SUBSTANCE ABUSE HISTORY: Denies drug or alcohol use. MENTAL STATUS EXAMINATION: This is a 66-year-old female with psychomotor retardation. Mood is depressed. Affect guarded and restricted. Thought process disorganized and illogical. The patient denies any current suicidal or homicidal thoughts. Insight and judgment is poor. DIAGNOSIS: Paranoid schizophrenia, rule out dementia with psychosis. PLAN: I am going to continue with Celexa 10 mg daily, Klonopin 0.5 mg q.6 h. p.r.n. anxiety, but because she has a history of paranoid schizophrenia, she got long acting IM of Invega Sustenna 156 mg IM every month. I am going to monitor this patient's hospital course to make sure there are no uncontrollable psychotic symptoms that require addition of oral antipsychotic, so I will monitor her. We will start oral antipsychotic at this time. Since she is on the long-acting Invega Sustenna, she will continue to be followed by Psychiatry throughout hospital course. Chart reviewed and discussed with staff. Seen and assessed at bedside. Thank you very much for this interesting consultation. Chele Yang M.D. DR: ROSA JOB#: [id number] CC: MILLER
--- NOTE | 2017-06-20 14:05 | Discharge Summary ---
Discharge Summary Hospital Course Date of Admission Jun 16, 2017 at 22:11 Date of Discharge Jun 19, 2017 at 18:48 Admitting Diagnosis sepsis HPI Nadiya Butler is a 66 year old female who was admitted on Jun 16, 2017 at 22:11 for Sepsis Hospital Course dc summary #[id number] Discharge Medications Continued Medications: Acetaminophen* (Acetaminophen 325MG Tablet*) 325 Mg Tablet 650 MG ORAL Q4H PRN for Fever/Headache/Mild Pain, TAB Cephalexin* (Keflex*) 500 Mg Capsule 500 MG ORAL EVERY 8 HOURS for 7 Days, #28 CAP 0 Refills Citalopram Hydrobromide (Celexa) 10 Mg Tablet 10 MG ORAL DAILY, TAB Clonazepam (Clonazepam) 0.5 Mg Tab.rapdis 0.5 MG PO Q4HR PRN for For Anxiety, TAB Clotrimazole* (Lotrimin*) 15 Gm Cream..g. 1 APPLIC TOPIC TWICE A DAY, GM Diphenhydramine HCl (Benadryl) 25 Mg Capsule 25 MG PO Q8HR PRN for Itching, CAP Heparin Sod (Porcine) (Heparin Sodium*) 5 000/1 Ml Vial 5000 UNITS SUBQ EVERY 12 HOURS, VIAL Ipratropium/Albuterol Sulfate (DuoNeb 0.5-3(2.5)mg/3ml) 3 Ml Ampul.neb 3 ML HHN Q4HR PRN for Shortness of Breath, EA Levothyroxine Sodium (Synthroid) 50 Mcg Tablet 50 MCG ORAL ACBREAKFAST, TAB Take in the morning on an empty stomach, at least 30 minutes beforefood. Lorazepam* (Ativan*) 1 Mg Tablet 1 MG ORAL BID, TAB Nicotine (Nicotine Patch) 1 Each Patch.td24 1 EACH TD q24Hr, PATCH Nitroglycerin (Nitrostat) 0.4 Mg Tab.subl 0.4 MG SL Q5M X3 DOSES PRN for CHEST PAIN, #25 TAB 0 Refills Ondansetron (Zofran) 4 Mg Tablet 4 MG ORAL Q6H PRN for Nausea & Vomiting, TAB Polyethylene Glycol 3350* (Miralax*) 17 Gm Powd.pack 17 GM ORAL DAILY PRN for Constipation, PACKET Temazepam* (Restoril*) 15 Mg Capsule 15 MG ORAL BEDTIME PRN for Insomnia, CAP Discontinued Medications: Acetaminophen (Acetaminophen) 650 Mg/20.3 Ml Solution 650 MG ORAL Q4HR PRN for fever & pain, ML 0 Refills Citalopram Hydrobromide (Citalopram Hbr) 10 Mg/5 Ml Solution 10 MG ORAL DAILY, ML Levothyroxine Sodium (Synthroid) 50 Mcg Tablet 25 MCG ORAL DAILY, TAB Take in the morning on an empty stomach, at least 30 minutes beforefood. Magnesium Hydroxide (Milk of Magnesia) 400 Mg/5 Ml Oral.susp 30 ML ORAL qhs PRN for Constipation, ML Discharge Condition Upon Discharge: stable Discharge Disposition Patient was discharged to SNF/Subacute Facility(03) Discharge Diagnoses: Abhijeet ([facility])Vesna NP Jun 20, 2017 14:05
--- NOTE | 2017-06-20 15:42 | Cardiology Report ---
APPROVED REPORT EKG Measurement Heart [id number] Normal sinus rhythm Low voltage QRS Borderline ECG
--- NOTE | 2017-06-21 12:15 | Discharge Summary 2 SIG ---
DATE OF ADMISSION: 06/16/2017 DATE OF DISCHARGE: 06/19/2017 The patient admitted under Dr. Sanchez. REASON FOR ADMISSION: This is a 66-year-old female with past medical history significant of schizophrenia, anemia, and hypothyroidism, was [facility] from the [facility] for evaluation of leukocytosis. At [facility], the patient remained afebrile and did not complain of any pain or discomfort. She denied cough or congestion. No diarrhea. No abdominal pain. No chest pain. No shortness of breath. No dizziness. The patient reported chronic rash secondary to heat on toes and legs and described the rash as itchy, but not painful and Benadryl helped. Workup in the emergency department revealed no fever. WBC was 17.1. Lactic acid was 2.6. Chest x-ray revealed evidence of hyperinflated lungs. The patient is a smoker and smokes one pack a day. EKG revealed normal sinus rate and no acute ischemic changes. The patient was admitted for further management. ADMITTING DIAGNOSES: 1. Possible sepsis. 2. Urinary tract infection. 3. Tenia corporis. 4. Hypothyroidism. 5. Schizophrenia. 6. Nicotine dependency with withdrawal. 7. Cachexia. 8. Possible protein-calorie malnutrition. HOSPITAL COURSE: The patient was admitted. The patient started on empiric antibiotics. ID followed. Urine culture grew E. coli. Leukocytosis resolved in one day. Topical Lotrimin started as per ID for skin rash and Benadryl as needed for pruritus. Supplemental oxygen and pulmonary toilet provided as needed. Pulse oximetry was stable on room air. Blood culture was negative. Followup chest x-ray revealed no changes, still hyperinflated lungs consistent with COPD, but no acute cardiopulmonary changes. The patient started on nicotine patch. The patient was counseled on smoking cessation, not ready to quit yet. Noted elevated TSH. Dose of levothyroxine increased from 25 to 50. Pre-albumin was within normal limits. Dietary evaluation was requested. Dietitian had seen the patient and recommended Ensure and Jermaine. The patient is cachectic despite normal pre-albumin. DVT prophylaxis provided. Psychiatrist seen and evaluated the patient and diagnosed her with paranoid schizophrenia and adjusted psychiatric medication regimen. The patient was stable to return back to facility. Antibiotic changed to oral, as per ID recommendation for additional seven days. DISCHARGE DIAGNOSES: 1. Sepsis. 2. Urinary tract infection with Escherichia coli. 3. Tenia corporis. 4. Hypothyroidism with elevated TSH. 5. Paranoid schizophrenia. 6. Nicotine dependency with withdrawal. 7. Cachexia. DISCHARGE MEDICATIONS: See medication reconciliation list. DISCHARGE INSTRUCTIONS: The [facility]. FOLLOWUP: Follow up with medical doctor at the facility. Jordan Sanchez D.O. I have been assigned to dictate discharge summary on this account and I was not involved in the patient's management. [facility]na [facility] [place] NPabloPPablo DR: Jovani JOB#: [id number] CC:
--- NOTE | 2017-06-22 06:30 | Progress Note ---
DATE: 06/20/2017 PSYCHOTHERAPY CONSULTATION PROGRESS NOTE TREATING ATTENDING PHYSICIAN: Jordan Sanchez D.O. SUBJECTIVE: The patient is a 66-year-old female patient from [facility]. This patient was diagnosed with paranoid schizophrenia. She has some confusion, disorganization, irritability, and mood instability. The patient states that her anxiety level is high, however, she denies suicidal and homicidal thoughts of ideation. Denies auditory or visual hallucinations at this time. MENTAL STATUS EXAMINATION: The patient is alert and oriented x2, person and place. Her mood is anxious. Affect is congruent. Thought process is disorganized. The patient has poor attention and concentration. Poor insight, judgment, and impulse control. PLAN: This clinician is providing the patient with reality orientation, supportive psychotherapy, encouraging the patient to participate in treatment milieu. Continue with medication management and behavioral management. This clinician has reviewed the patient's chart and discussed the treatment with nursing staff. Crow Sweeney PsyD. DR: Lucy JOB#: [id number] CC:
== END 2017-06-19 18:48 | DRG 872 ==
LOC: EDBD 18:17 → EMR 18:27 → 4E 22:11 → EDBEDREQ 22:37
DX: A41.9 Sepsis, unspecified organism (principal); R64 Cachexia; E46 Unspecified protein-calorie malnutrition; N39.0 Urinary tract infection, site not specified; B35.4 Tinea corporis; F17.200 Nicotine dependence, unspecified, uncomplicated; F32.9 Major depressive disorder, single episode, unspecified; Z68.1 Body mass index [BMI] 19.9 or less, adult; F20.0 Paranoid schizophrenia; E03.9 Hypothyroidism, unspecified; B96.20 Unspecified Escherichia coli [E. coli] as the cause of diseases classified elsewhere; R21 Rash and other nonspecific skin eruption; Z88.8 Allergy status to other drugs, medicaments and biological substances; F41.9 Anxiety disorder, unspecified
CPT/HCPCS: 36415; 71010; 80048; 80053; 80202; 81001; 81003; 82550; 82553; 83605; 84134; 84443; 84484; 85025; 87040; 87081; 87086; 87181; 93005; 94664; 97803; 99285